=== PATIENT | female | born 1950 | race Caucasian/White ===

== ENCOUNTER 2020-12-07 19:51 | Emergency (ER) | payer MEDICARE, OTHER ==
[2020-12-07] MEDS ORDERED: Ondansetron 4 MG/2 ML SDV IVPUSH ONE (20:07)
[2020-12-07] MEDS ORDERED: LORazepam 2 MG/ML SDV IVPUSH ONE ×3 (20:07→20:50)
--- NOTE | 2020-12-07 20:21 | EDM.PDOC ---
ED HPI GENERAL MEDICAL PROBLEM - General Stated Complaint: fall down stairs, facial and head trauma Time Seen by Provider: 12/07/20 20:07 Source of Information: Reports: Patient, EMS, Family History Limitations: Reports: Altered Mental Status, Combative/Threatening, Intoxication, Other (significant dementia) - History of Present Illness INITIAL COMMENTS - FREE TEXT/NARRATIVE: Patient presents after fall down 10 carpeted stairs. Fall was unwitnessed. She lives at home with her and they had been drinking beer outside today. She had about 6 beers and went into the house from the garage to use the bathroom. When she didn't return after at least 20 minutes, her went to look for her. Found her at the bottom of the carpeted 10 steps on the carpet at the bottom. She had been incontinent of her urine. notable facial trauma and blood nose. EMS was called. Patient is combative due to her dementia and IV was not placed. She was placed in a c collar and spine boarded. According to the , not on a blood thinner, takes a pill for hypertension, and a pill for dementia. Patient does not remember what happened and does not have recollection after being told. Her wrists hurt, but she is moving them. complains of head and facial pain Onset: Today Location: Reports: Head, Face, Upper Extremity, Left, Upper Extremity, Right Severity: Moderate - Related Data Allergies Allergy/AdvReac Type Severity Reaction Status Date / Time No Known Allergies Allergy Verified 12/07/20 21:00 Home Meds: Home Meds Ondansetron [Zofran ODT] 4 mg PO Q6H PRN #12 tab.dis 12/07/20 [Rx] Potassium Chloride 20 meq PO DAILY #30 tablet.er 12/07/20 [Rx] cephALEXin [Keflex] 500 mg PO Q8H 10 Days #30 cap 12/07/20 [Rx] Past Medical History Cardiovascular History: Reports: Hypertension Neurological History: Reports: Other (See Below) (dementia with behavior disturbance) Social & Family History - Tobacco Use Tobacco Use Status *Q: Never Tobacco User - Alcohol Use Alcohol Use History: Yes Alcohol Use Comment: 6 beers today - Recreational Drug Use Recreational Drug Use: No Drug Use in Last 12 Months: No - Living Situation & Occupation Living situation: Reports: , with Spouse Review of Systems - Review of Systems Review Of Systems: Unable To Obtain Reason Not Obtained: dementia, patient is confused and lacks short term memory Nose: Reports: Epistaxis Mouth/Throat: Reports: Lip Swelling, Loose Teeth Musculoskeletal: Reports: Arm Pain (bilateral wrists) Neurological: Reports: Confusion, Headache ED EXAM, GENERAL - Physical Exam Exam: See Below Exam Limited By: Altered Mental Status (intoxication, dementia with behavior disturbance) General Appearance: Alert, Anxious Eye Exam: Bilateral Eye: EOMI, Normal Inspection, PERRL Ears: Normal External Exam, Normal Canal, Hearing Grossly Normal Nose: Nasal Tenderness, Nasal Swelling, Other (abrasion to the nasal bridge, bilateral dried blood in the nares ) Throat/Mouth: Other (dental trauma right front tooth. , difficult exam, patient not cooperative no other loose teeth to palpation) Head: Facial Swelling (with abrasions), Facial Tenderness, Other (bruising of the face) Neck: Other (c collar, attempting to sit up and move the collar) Respiratory/Chest: No Respiratory Distress, Lungs Clear, Normal Breath Sounds, No Accessory Muscle Use Cardiovascular: Normal Peripheral Pulses, Regular Rate, Rhythm, No Edema, No Murmur GI/Abdominal: Normal Bowel Sounds, Soft, Non-Tender, No Organomegaly, No Abnormal Bruit, No Mass, Other (no signs of trauma) (Female) Exam: Other (incontinent of stool and urine. ) Back Exam: Normal Inspection, Full Range of Motion. No: CVA Tenderness (L), CVA Tenderness (R), Decreased Range of Motion, Muscle Spasm, Paraspinal Tenderness, Vertebral Tenderness Extremities: Other (moves lower extremities without deficits, scattered bruising, moves upper extremities witout deficits, complains of pain in the wrists when touched. No gross deformities, able to weight bear and stand) Neurological: Alert, Disoriented (knows self and ), Memory Loss Remote Events, Memory Loss Recent Events. No: Normal Cognition Psychiatric: Anxious Course - Orders/Labs/Meds Orders: Active Orders 24 hr Category Date Time Status EKG Documentation Completion [RC] STAT Care 12/07/20 20:07 Active Cervical Spine wo Cont [CT] Stat Exams 12/07/20 20:07 Ordered Chest 1V Frontal [CR] Stat Exams 12/07/20 21:01 Ordered Chest wo Cont [CT] Stat Exams 12/07/20 20:07 Stop Req Head wo Cont [CT] Stat Exams 12/07/20 20:07 Ordered Max Facial Sinus wo Cont [CT] Stat Exams 12/07/20 20:07 Ordered Potassium Chloride Riders [KCL in Water 20 MEQ/50 ML] Med 12/07/20 20:50 Active 20 meq Premix Bag 1 bag IV ONETIME Sodium Chloride 0.9% [Normal Saline] 1,000 ml Med 12/07/20 20:50 Active IV ONETIME Medication Orders Potassium Chloride 20 meq/ (Premix) 50 mls @ 50 mls/hr IV ONETIME ONE Stop: 12/07/20 21:49 Sodium Chloride (Normal Saline) 1,000 mls @ 999 mls/hr IV ONETIME ONE Stop: 12/07/20 21:50 Labs: Laboratory Tests 12/07/20 12/07/20 12/07/20 Range/Units 20:08 20:08 20:08 WBC 8.7 (4.0-10.0) x10^3/uL RBC 3.95 L (4.00-5.50) x10^6/uL Hgb 12.5 (12.0-16.0) g/dL Hct 35.8 (33.0-47.0) % MCV 90.6 (78.0-93.0) fL MCH 31.6 (26.0-32.0) pg MCHC 34.9 (32.0-36.0) g/dL RDW Coeff of Fito 14.4 (10.0-15.0) % Plt Count 282 (130-400) x10^3/uL Immature Gran % (Auto) 0.30 (0.00-0.43) % Neut % (Auto) 51.4 (50.0-80.0) % Lymph % (Auto) 39.7 (25.0-50.0) % [place] % (Auto) 5.8 (2.0-11.0) % Eos % (Auto) 2.1 (0.0-4.0) % Baso % (Auto) 0.7 (0.2-1.2) % Neut # (Auto) 4.5 (1.8-7.7) x10^3/uL Lymph # (Auto) 3.5 (1.0-4.8) x10^3/uL [place] # (Auto) 0.5 (0.0-0.8) x10^3/uL Eos # (Auto) 0.2 (0.0-0.5) x10^3/uL Baso # (Auto) 0.1 (0.0-0.2) x10^3/uL Immature Gran # (Auto) 0.03 (0.00-0.07) x10^3/uL Sodium 137 (136-145) mmol/L Potassium 2.9 L* (3.5-5.1) mmol/L Chloride 99 (98-107) mmol/L Carbon Dioxide 23 (21-32) mmol/L Anion Gap 17.9 H (5-15) mmol/L BUN 10 (7-18) mg/dL Creatinine 0.5 L (0.55-1.02) mg/dL Est Cr Clr Drug Dosing TNP Estimated GFR (MDRD) > 60 Glucose 129 H (70-99) mg/dL Lactic Acid 4.3 H* (0.4-2.0) mmol/L Calcium 9.1 (8.5-10.1) mg/dL Corrected Calcium 9.4 (8.5-10.1) mg/dL Total Bilirubin 0.7 (0.2-1.0) mg/dL AST 25 (15-37) U/L ALT 21 (14-59) U/L Alkaline Phosphatase 54 (46-116) U/L Creatine Kinase 170 (26-192) U/L Troponin I High Sens 6 (<=51) ng/L C-Reactive Protein < 0.2 (<=0.9) mg/dL Total Protein 6.0 L (6.4-8.2) g/dL Albumin 3.6 (3.4-5.0) g/dL Globulin 2.4 Albumin/Globulin Ratio 1.50 Ethyl Alcohol (0-3) mg/dL 12/07/20 Range/Units 20:08 WBC (4.0-10.0) x10^3/uL RBC (4.00-5.50) x10^6/uL Hgb (12.0-16.0) g/dL Hct (33.0-47.0) % MCV (78.0-93.0) fL MCH (26.0-32.0) pg MCHC (32.0-36.0) g/dL RDW Coeff of Fito (10.0-15.0) % Plt Count (130-400) x10^3/uL Immature Gran % (Auto) (0.00-0.43) % Neut % (Auto) (50.0-80.0) % Lymph % (Auto) (25.0-50.0) % [place] % (Auto) (2.0-11.0) % Eos % (Auto) (0.0-4.0) % Baso % (Auto) (0.2-1.2) % Neut # (Auto) (1.8-7.7) x10^3/uL Lymph # (Auto) (1.0-4.8) x10^3/uL [place] # (Auto) (0.0-0.8) x10^3/uL Eos # (Auto) (0.0-0.5) x10^3/uL Baso # (Auto) (0.0-0.2) x10^3/uL Immature Gran # (Auto) (0.00-0.07) x10^3/uL Sodium (136-145) mmol/L Potassium (3.5-5.1) mmol/L Chloride (98-107) mmol/L Carbon Dioxide (21-32) mmol/L Anion Gap (5-15) mmol/L BUN (7-18) mg/dL Creatinine (0.55-1.02) mg/dL Est Cr Clr Drug Dosing Estimated GFR (MDRD) Glucose (70-99) mg/dL Lactic Acid (0.4-2.0) mmol/L Calcium (8.5-10.1) mg/dL Corrected Calcium (8.5-10.1) mg/dL Total Bilirubin (0.2-1.0) mg/dL AST (15-37) U/L ALT (14-59) U/L Alkaline Phosphatase (46-116) U/L Creatine Kinase (26-192) U/L Troponin I High Sens (<=51) ng/L C-Reactive Protein (<=0.9) mg/dL Total Protein (6.4-8.2) g/dL Albumin (3.4-5.0) g/dL Globulin Albumin/Globulin Ratio Ethyl Alcohol 176 H (0-3) mg/dL Meds: Medications Generic Name Dose Route Start Last Admin Trade Name Freq PRN Reason Stop Dose Admin Potassium Chloride 20 meq/ 50 mls @ 50 mls/hr 12/07/20 20:50 Premix IV 12/07/20 21:49 ONETIME ONE Sodium Chloride 1,000 mls @ 999 mls/hr 12/07/20 20:50 Normal Saline IV 12/07/20 21:50 ONETIME ONE Discontinued Medications Generic Name Dose Route Start Last Admin Trade Name Freq PRN Reason Stop Dose Admin Lorazepam 1 mg 12/07/20 20:07 Lorazepam 2 Mg/Ml Sdv IVPUSH 12/07/20 20:08 STAT ONE Lorazepam 0.5 mg 12/07/20 20:07 Lorazepam 2 Mg/Ml Sdv IVPUSH 12/07/20 20:08 STAT ONE Lorazepam 0.5 mg 12/07/20 20:50 Lorazepam 2 Mg/Ml Sdv IVPUSH 12/07/20 20:51 STAT ONE Morphine Sulfate 2 mg 12/07/20 20:50 Morphine 2 Mg/Ml Syringe IVPUSH 12/07/20 20:51 ONETIME ONE Ondansetron HCl 4 mg 12/07/20 20:07 Ondansetron 4 Mg/2 Ml Sdv IVPUSH 12/07/20 20:08 ONETIME ONE - Radiology Interpretation Free Text/Narrative:: ct maxillo facial without comminuted nondisplaced nasal bone fractures, left frontal scalp hematoma and periorbital soft tissue swelling. left maxillary and infraorbital soft tissue edema ct cervical spine without no acute process, DJD Ct head without no acute intracranial trauma right wrist moderate to advanced degenerative change in the wrist debris over the volar and dorsal aspects of wrist, secondary to arthritis. no acute chest 1 view no acute, pelvis subtle band in the basocervical region of the right femoral neck, artifact versus hairline fracture. clinical correlation requested, CT for further imaging as needed left wrist DJD, no acute all films interpreted by radiology - Re-Assessments/Exams Free Text/Narrative Re-Assessment/Exam: 12/07/20 20:26 Patient with trauma, dementia and confusion. Alcohol involved. will give ativan 0.5 mg IVP and zofran [address] scans ordered. bilateral wrist films, pelvis. 12/07/20 20:[address], difficult to stay still, Does drink 3 times a week,, lactic elevated probable due to this. unable to get a urine, will not tolerate a cath. Will given 0.5 mg ativan, morphine 2 mg ivp and iv fluid bolus, along with 20 meq potassium IV. Awaiting ct results. 12/07/20 21:58 Patient continues to try to climb out of bed. WEight bearing on the right hip without pain. will place on antibiotics for the nasal bone fractures. limited hydrocodone for pain with concern for safety at home. discussed with the need for caregivers, memory care. not interested at this time. Will send home with zofran, hydrocodone and keflex. follow up with ENT as desired. nasal fractures are nondisplaced. extensive discussion about post hospital course. invited to return as needed. feel she will be more comfortable and less confused at home. 12/07/20 22:20 Departure - Departure Time of Disposition: 23:00 Disposition: Home, Self-Care 01 Clinical Impression: Fall (on) (from) other stairs and steps, initial encounter, Head trauma, Dental trauma, Alcohol intoxication, Hypokalemia, Nasal fracture, Facial contusion, Hand pain - Discharge Information Prescriptions: cephALEXin [Keflex] 500 mg PO Q8H 10 Days #30 cap Potassium Chloride 20 meq PO DAILY #30 tablet.er Ondansetron [Zofran ODT] 4 mg PO Q6H PRN #12 tab.dis PRN Reason: Nausea Instructions: Head Injury, Adult, Nasal Fracture, [id number], Hypokalemia, Alcohol Intoxication, [id number], Facial or Scalp Contusion, [id number], Protein Content in Foods Referrals: Shilpa Pratt DO [Primary Care Provider] - Additional Instructions: CT scans reveal nasal bone fractures without displacement. Avoid blowing the nose for the next three days. Follow up with ENT physician for this. She needs to be on antibiotics due to the open fracture for 10 days. She was given zofran to help for nausea if she has any and hydrocodone for severe pain, but you are cautioned that this may make her more altered and use with caution. Ice the swollen areas. Tylenol or motrin for pain. Limit alcohol use. If her right hip continues to bother her, reimage the area or get CT scan in the next week to rule out hairline fracture. She was given multiple medications that will make her unsteady on her feet to help with her agitiation and has a blood alcohol of 157. Increase potassium rich foods in the diet like bananas, orange juice, potatoes and start an over the counter supplement of potassium of 20 meq daily. REcheck this level on thursday or Thursday. - My Orders Last 24 Hours: My Active Orders 12/07/20 20:07 EKG Documentation Completion [RC] STAT Cervical Spine wo Cont [CT] Stat Chest wo Cont [CT] Stat Head wo Cont [CT] Stat Max Facial Sinus wo Cont [CT] Stat 12/07/20 20:50 Potassium Chloride Riders [KCL in Water 20 MEQ/50 ML] 20 meq Premix Bag 1 bag IV ONETIME Sodium Chloride 0.9% [Normal Saline] 1,000 ml IV ONETIME 12/07/20 21:01 Chest 1V Frontal [CR] Stat - Assessment/Plan Last 24 Hours: My Active Orders 12/07/20 20:07 EKG Documentation Completion [RC] STAT Cervical Spine wo Cont [CT] Stat Chest wo Cont [CT] Stat Head wo Cont [CT] Stat Max Facial Sinus wo Cont [CT] Stat 12/07/20 20:50 Potassium Chloride Riders [KCL in Water 20 MEQ/50 ML] 20 meq Premix Bag 1 bag IV ONETIME Sodium Chloride 0.9% [Normal Saline] 1,000 ml IV ONETIME 12/07/20 21:01 Chest 1V Frontal [CR] Stat
[2020-12-07 20:37] LABS: CHLORIDE,CL 99 mmol/L (98-107); SODIUM,NA 137 mmol/L (136-145)
[2020-12-07 20:49] LABS: ANION GAP 17.9 mmol/L (5-15)
[2020-12-07] MEDS ORDERED: Sodium Chloride 0.9% 1,000 ML IV ONE (20:50)
[2020-12-07] MEDS ORDERED: Potassium Chloride Riders 20 MEQ in Premix Bag 1 BAG IV ONE (20:50)
[2020-12-07] MEDS ORDERED: Morphine 2 MG/ML SYRINGE IVPUSH ONE (20:50)
--- NOTE | 2020-12-07 20:54 | CR ---
[id number] RAD/RAD Pelvis 1-2V Exam: RAD Pelvis 1-2V Indication:FALL DOWN STAIRS, AMS Comparison: No prior imaging for comparison. Discussion/Impression: Subtle linear band of sclerosis projecting over the basicervical region of the medial right femoral neck. This is possibly summation artifact from overlapping structures. However nondisplaced fracture is possible in the setting of fall. Correlate for laterality of pain. If findings are clinically equivocal, noncontrast CT examination is recommended. No other evidence of possible fracture pelvis. Roshan Barry MD 12/07/202053 Thank you for allowing us to participate in the care of your patient.
--- NOTE | 2020-12-07 20:55 | CR ---
[id number] RAD/RAD Wrist Left 2V Exam: RAD Wrist Left 2V Indication:FALL DOWN STAIRS, AMS Comparison: No prior imaging for comparison. Discussion/Impression: Moderate to advanced degenerative change throughout the wrist. Findings include osteoarthritis and TFCC chondrocalcinosis. Mineralized debris projects over the ulnar styloid, possibly within the pisiform recess or adjacent tendon sheaths. No radiographically evident fracture. Roshan Barry MD 12/07/202054 Thank you for allowing us to participate in the care of your patient.
--- NOTE | 2020-12-07 20:57 | CR ---
[id number] RAD/RAD Wrist Right 2V Exam: RAD Wrist Right 2V Indication:FALL DOWN STAIRS, AMS Comparison: No prior imaging for comparison. Discussion/Impression: Moderate to advanced degenerative change in the wrist. Findings include TFCC chondrocalcinosis. Mineralized debris projects over the volar and dorsal aspects of the wrist as well. This is likely intra-articular secondary to osteoarthritis. Subchondral geode centered in the scaphoid waist. Roshan Barry MD 12/07/202055 Thank you for allowing us to participate in the care of your patient.
[2020-12-07] MEDS ORDERED: diphenhydrAMINE 50 MG/ML SDV IVPUSH ONE (21:48)
[2020-12-07] MEDS ORDERED: Take Home: Acetaminophen/HYDROcodone 325-5 MG, 5 Tab Pack PO ONE (22:08)
[2020-12-07] MEDS ORDERED: Cephalexin 500 MG Cap PO ONE (22:09)
--- NOTE | 2020-12-10 10:22 | CR ---
[id number] RAD/RAD Chest Portable EXAM: PORTABLE CHEST RADIOGRAPH. INDICATION: TRAUMA COMPARISON: No previous similar exam is available for comparison. FINDINGS: The lungs are clear. The cardiomediastinal contour is moderately enlarged. The regional bones and soft tissues are unremarkable. There is no pneumothorax. IMPRESSION: NO ACUTE PROCESS. Migel Dhillon MD 12/10/20 1020 Thank you for allowing us to participate in the care of your patient.
--- NOTE | 2020-12-10 10:23 | CT ---
[id number] CT/CT Head WO IV EXAM: CT Head WO IV CLINICAL DATA: TRAUMA COMPARISON: No previous similar exam is available for comparison. FINDINGS: Soft tissue swelling is seen over the left frontal region There is motion artifact There are involutional changes There is no mass or mass effect. There is no hemorrhage or hydrocephalus. There are no extra-axial fluid collections. There are no sites of abnormal attenuation. IMPRESSION: NO PLAIN CT EVIDENCE OF ACUTE INTRACRANIAL PROCESS. Migel Dhillon MD 12/10/20 [id number] Thank you for allowing us to participate in the care of your patient.
--- NOTE | 2020-12-10 10:26 | CT ---
[id number] CT/CT Cervical Spine WO IV Exam: CT Cervical Spine WO IV Clinical Data: TRAUMA COMPARISON: NO PREVIOUS SIMILAR EXAM IS AVAILABLE FINDINGS: No fracture or subluxation is seen There are extensive degenerative changes The prevertebral soft tissues are unremarkable IMPRESSION: NO FRACTURE OR SUBLUXATION Migel Dhillon MD 12/10/20 [id number] Thank you for allowing us to participate in the care of your patient.
--- NOTE | 2020-12-10 10:32 | CT ---
[id number] CT/CT Facial Bones WO IV Exam: CT Facial Bones WO IV Clinical Data: TRAUMA COMPARISON: CORRELATION IS MADE WITH THE PLAIN CT BRAIN FINDINGS: Nondisplaced bilateral nasal fractures are seen There is no other fracture identified There is no orbital emphysema IMPRESSION: NONDISPLACED BILATERAL NASAL FRACTURES Migel Dhillon MD 12/10/20 1031 Thank you for allowing us to participate in the care of your patient.
== END 2020-12-07 22:45 | disposition home or self-care (01) ==
LOC: VM.ED 19:51
DX: S02.2XXA Fracture of nasal bones, initial encounter for closed fracture (principal); S00.83XA Contusion of other part of head, initial encounter; F10.129 Alcohol abuse with intoxication, unspecified; E87.6 Hypokalemia; I10 Essential (primary) hypertension; Y90.6 Blood alcohol level of 120-199 mg/100 ml; W10.8XXA Fall (on) (from) other stairs and steps, initial encounter
CPT/HCPCS: 70450; 70486; 71045; 72125; 72170; 73100; 80053; 80307; 82550; 83605; 84484; 85025; 86140; 96365; 96375; 96376; 99285; A9270; J2060; J2270; J2405; J3480; J7030

== ENCOUNTER 2023-12-25 16:43 | Emergency (ER) | payer MEDICARE, OTHER | END 2023-12-25 17:04 | LOC: VM.ED 16:43 | DX: S01.01XA Laceration without foreign body of scalp, initial encounter (principal); I10 Essential (primary) hypertension; Z79.899 Other long term (current) drug therapy; W01.198A Fall on same level from slipping, tripping and stumbling with subsequent striking against other object, initial encounter | CPT/HCPCS: 12001; 99283 ==

== ENCOUNTER 2024-09-26 11:24 | Inpatient (IN) | payer MEDICARE, OTHER ==
[2024-09-26] MEDS ORDERED: Sodium Chloride 0.9% 10 ML Syringe FLUSH PRN (13:50)
[2024-09-26 14:06] LABS: BASOPHILS ABSOLUTE AUTO 0.0 x10^3/uL (0.0-0.2); BASOPHILS PERCENT AUTO 0.2 % (0.2-1.2); EOSINOPHILS ABSOLUTE AUTO 0.1 x10^3/uL (0.0-0.5); EOSINOPHILS PERCENT AUTO 0.8 % (0.0-4.0); IMMATURE GRAN ABSOLUTE AUTO 0.01 x10^3/uL (0.00-0.07); IMMATURE GRAN PERCENT AUTO 0.10 % (0.00-0.43); LYMPHOCYTES ABSOLUTE AUTO 0.9 x10^3/uL (1.0-4.8); LYMPHOCYTES PERCENT AUTO 6.8 % (25.0-50.0); MONOCYTES ABSOLUTE AUTO 0.7 x10^3/uL (0.0-0.8); MONOCYTES PERCENT AUTO 5.1 % (2.0-11.0); NEUTROPHILS ABSOLUTE AUTO 11.3 x10^3/uL (1.8-7.7); NEUTROPHILS PERCENT AUTO 87.0 % (50.0-80.0); PLATELET COUNT,PLT 243 x10^3/uL (130-400); RED BLOOD CELL COUNT 3.96 x10^6/uL (4.00-5.50); WHITE BLOOD CELL COUNT,WBC 13.0 x10^3/uL (4.0-10.0)
[2024-09-26 14:18] LABS: INR 1.0 (0.9-1.1)
[2024-09-26 14:24] LABS: A/G RATIO 1.37; ALANINE AMINOTRANSFERASE,ALT 19 U/L (14-59); ASPARTATE AMNIOTRANSFERASE,AST 21 U/L (15-37); BILIRUBIN TOTAL 0.6 mg/dL (0.2-1.0); BLOOD UREA NITROGEN,BUN 17 mg/dL (7-18); CARBON DIOXIDE,CO2 30 mmol/L (21-32); CHLORIDE,CL 102 mmol/L (98-107); CREATININE 0.9 mg/dL (0.55-1.02); ESTIMATED GFR 66 mL/min (>=60); GLUCOSE RANDOM 136 mg/dL (70-99); POTASSIUM,K 3.5 mmol/L (3.5-5.1); PROTEIN TOTAL,TP 7.1 g/dL (6.4-8.2); SODIUM,NA 141 mmol/L (136-145)
[2024-09-26] MEDS ORDERED: Ondansetron 4 MG Tab.DIS PO PRN (15:18)
[2024-09-26] MEDS ORDERED: Acetaminophen/HYDROcodone 325-5 MG Tab PO PRN (15:18)
[2024-09-26] MEDS ORDERED: Ondansetron 4 MG/2 ML SDV IV PRN (15:18)
[2024-09-26] MEDS ORDERED: Naloxone 0.4 MG/ML SDV IVPUSH PRN (15:18)
== END 2024-09-26 19:30 | disposition short-term general hospital (02) | DRG 536 ==
LOC: VM.ED 11:24 → VM.MS 14:00
PROVIDERS: ADMIT Nurse Practitioner Family; ATTEND Internal Medicine
DX: M25.551 Pain in right hip (principal); S72.001A Fracture of unspecified part of neck of right femur, initial encounter for closed fracture; Z66 Do not resuscitate; G30.0 Alzheimer's disease with early onset; F02.80 Dementia in other diseases classified elsewhere, unspecified severity, without behavioral disturbance, psychotic disturbance, mood disturbance, and anxiety; I10 Essential (primary) hypertension; M81.0 Age-related osteoporosis without current pathological fracture; F41.9 Anxiety disorder, unspecified; K21.9 Gastro-esophageal reflux disease without esophagitis; D50.9 Iron deficiency anemia, unspecified; M17.0 Bilateral primary osteoarthritis of knee; E78.00 Pure hypercholesterolemia, unspecified; Z98.890 Other specified postprocedural states; Z88.8 Allergy status to other drugs, medicaments and biological substances; Z91.040 Latex allergy status; Z79.82 Long term (current) use of aspirin; Z79.899 Other long term (current) drug therapy; Z90.710 Acquired absence of both cervix and uterus
CPT/HCPCS: 36415; 73560-RT; 73700-RT; 80053; 85025; 85610; 87070; 99284; 99285; A9270-GY; J2270

== ENCOUNTER 2024-10-08 16:36 | Emergency (ER) | payer MEDICARE, OTHER ==
[2024-10-08] MEDS ORDERED: Sodium Chloride 0.9% 10 ML Syringe FLUSH PRN (16:42)
[2024-10-08 16:55] LABS: BASOPHILS ABSOLUTE AUTO 0.0 x10^3/uL (0.0-0.2); BASOPHILS PERCENT AUTO 0.4 % (0.2-1.2); EOSINOPHILS ABSOLUTE AUTO 0.4 x10^3/uL (0.0-0.5); EOSINOPHILS PERCENT AUTO 5.0 % (0.0-4.0); IMMATURE GRAN ABSOLUTE AUTO 0.07 x10^3/uL (0.00-0.07); IMMATURE GRAN PERCENT AUTO 0.90 % (0.00-0.43); LYMPHOCYTES ABSOLUTE AUTO 1.3 x10^3/uL (1.0-4.8); LYMPHOCYTES PERCENT AUTO 16.6 % (25.0-50.0); MONOCYTES ABSOLUTE AUTO 0.7 x10^3/uL (0.0-0.8); MONOCYTES PERCENT AUTO 8.4 % (2.0-11.0); NEUTROPHILS ABSOLUTE AUTO 5.5 x10^3/uL (1.8-7.7); NEUTROPHILS PERCENT AUTO 68.7 % (50.0-80.0); PLATELET COUNT,PLT 398 x10^3/uL (130-400); RED BLOOD CELL COUNT 2.90 x10^6/uL (4.00-5.50); WHITE BLOOD CELL COUNT,WBC 8.0 x10^3/uL (4.0-10.0)
[2024-10-08] MEDS ORDERED: Naloxone 0.4 MG/ML SDV IVPUSH PRN (17:05)
[2024-10-08 17:08] LABS: INR 0.9 (0.9-1.1)
[2024-10-08 17:13] LABS: A/G RATIO 0.87; ALANINE AMINOTRANSFERASE,ALT 24 U/L (14-59); ASPARTATE AMNIOTRANSFERASE,AST 24 U/L (15-37); BILIRUBIN TOTAL 0.6 mg/dL (0.2-1.0); BLOOD UREA NITROGEN,BUN 18 mg/dL (7-18); CARBON DIOXIDE,CO2 30 mmol/L (21-32); CHLORIDE,CL 105 mmol/L (98-107); CREATININE 0.8 mg/dL (0.55-1.02); ESTIMATED GFR 76 mL/min (>=60); GLUCOSE RANDOM 112 mg/dL (70-99); POTASSIUM,K 4.1 mmol/L (3.5-5.1); PROTEIN TOTAL,TP 5.8 g/dL (6.4-8.2); SODIUM,NA 142 mmol/L (136-145)
[2024-10-08] MEDS: Iopamidol 612 MG/ML 100 ML Bottle IVPUSH ONE (17:20)
== END 2024-10-08 19:04 | disposition short-term general hospital (02) ==
LOC: VM.ED 16:36
DX: M96.830 Postprocedural hemorrhage of a musculoskeletal structure following a musculoskeletal system procedure (principal); E78.00 Pure hypercholesterolemia, unspecified; I10 Essential (primary) hypertension; Z91.030 Bee allergy status; Z91.040 Latex allergy status; Z79.82 Long term (current) use of aspirin; Z79.899 Other long term (current) drug therapy; Z90.710 Acquired absence of both cervix and uterus; W18.39XA Other fall on same level, initial encounter
CPT/HCPCS: 72193; 80053; 83735; 85025; 85610; 96374; 99284; 99285; J2270; Q9967